=== PATIENT | female | born 1985 | race Caucasian/White ===

== ENCOUNTER → 2017-08-26 | Outpatient (CLI) | payer BC ==
[2017-08-26 10:25] LABS: CALCIUM 9.3 mg/dL (8.4-10.2); CREATININE, serum 0.54 mg/dL (0.52-1.25); POTASSIUM 4.2 mmol/L (3.4-5.0)
[2017-08-26 10:57] LABS: THYROID STIMULATING HORMONE 3.45 uIU/mL (0.465-4.680)
== END ==
LOC: COL.LAB 09:45
PROVIDERS: Physician Assistant
DX: R60.9 Edema, unspecified (principal); I10 Essential (primary) hypertension

== ENCOUNTER → 2017-09-01 | Outpatient (CLI) | payer BC | LOC: COL.CARD 09:41 | DX: I49.3 Ventricular premature depolarization (principal) ==

== ENCOUNTER 2018-10-14 05:33 | Day surgery (SDC) | payer OTHER ==
[~2018-10-14] VITALS: Ht 170.2 cm; Wt 183.7 kg
[2018-10-14] MEDS ORDERED: SYEDA 3 MG-0.031 TAB PO (06:07)
[2018-10-14] MEDS ORDERED: TENORMIN 5050 MG/TAB PO (06:09)
[2018-10-14] MEDS ORDERED: PRINIVIL10 MG PO (06:09)
[2018-10-14] MEDS ORDERED: GLUCOPHAGE1000 MG PO (06:10)
[2018-10-14] MEDS ORDERED: LEXAPRO 10MG10 MG PO (06:11)
[2018-10-14] MEDS ORDERED: ORIGANUM OIL 1 M1 ML (06:14)
[2018-10-14] MEDS ORDERED: ACIDOPHILIS PO (06:14)
[2018-10-14] MEDS ORDERED: NATURE'S BLEND600 M2 (06:15)
[2018-10-14 06:52] VITALS: BP 140/72; PULSE 88; TEMP 98.4
[2018-10-14] MEDS ORDERED: IBU800 M1 PO (08:52)
[2018-10-14] MEDS ORDERED: PERCOCET 325 MG1 TA2 PO (08:53)
[2018-10-14 10:00] VITALS: BP 111/37; PULSE 56; TEMP 97.6
[2018-10-14 10:30] VITALS: BP 118/60; PULSE 67
[2018-10-14 10:43] VITALS: BP 118/60; PULSE 67
[2018-10-14 10:45] VITALS: BP 133/57; PULSE 69
--- NOTE | 2018-10-14 13:53 | NUR ---
1015 PT SITTING UP, TALKING WITH MOTHER, DENIES PAIN, UP TO THE BATHROOM WITH MINIMAL ASSISTANCE, DENIES N/V WILL CONT TO MONITOR
--- NOTE | 2018-10-14 13:59 | NUR ---
1030 PT ALERT, DENIES PAIN, STATES SOME MENSRUAL TYPE CRAMPING, BUT TOLERABLE NOTED SCANT AMOUNT OF RED DRAINAGE IN POST-OP UNDERWEAR. DENIES N/V. WILL CONT TO MONITOR
--- NOTE | 2018-10-14 14:02 | NUR ---
1100 - PT VS WNL, O2 SATS >90% ON RA. PT STATES MINIMAL PAIN, RATES 1-2 ON 0-10 SCALE. IV DC'D TO RIGHT WRIST. NO REDNESS, SWELLING OR DRAINAGE NOTED TO IV SITE. PT DRESSED INDEPENDENTLY, WALKED TO AND FROM BATHROOM W/O DIFFICULTY. VOIDED WITHOUT DIFFICULTY. TOLERATED WATER AND SALTINE CRACKERS WITHOUT N/V. POST-OP DISCHARGE SHEET WAS SIGNED BY THE PT. POST-OP INSTRUCTIONS INCLUDED PAIN MED, PERCOCET AND SCRIPT GIVEN TO PT. ACTIVITY INSTRUCTIONS/ DIET INFO GIVEN TO PT. IF BLEEDING INCREASED OR DISCHARGE NOTED TO CALL DR WITH CONCERNS. INFO R/T ANESTHESIA GIVEN TO PT, PT VOICED UNDERSTANDING OF ALL INSTRUCTIONS. PT DC'D PER W/C WITH MOM BY HER SIDE, INTO FAMILY CAR.
== END 2018-10-14 11:27 | disposition home or self-care (01) ==
LOC: SDCO 05:33
DX: N93.8 Other specified abnormal uterine and vaginal bleeding (principal); N84.0 Polyp of corpus uteri; E28.2 Polycystic ovarian syndrome; I10 Essential (primary) hypertension; E66.01 Morbid (severe) obesity due to excess calories; K58.9 Irritable bowel syndrome, unspecified; Z79.84 Long term (current) use of oral hypoglycemic drugs
CPT/HCPCS: J1170; J1885; J2405; J2704; J3010; J7030

== ENCOUNTER → 2020-04-11 | Outpatient (CLI) | payer OTHER ==
[~2020-04-11] MED LIST: ACIDOPHILIS PO; GLUCOPHAGE1000 MG PO; IBU800 M1 PO; LEXAPRO 10MG10 MG PO; NATURE'S BLEND600 M2; ORIGANUM OIL 1 M1 ML; PERCOCET 325 MG1 TA2 PO; PRINIVIL10 MG PO; SYEDA 3 MG-0.031 TAB PO; TENORMIN 5050 MG/TAB PO
== END ==
LOC: COL.LAB
DX: R06.02 Shortness of breath (principal)

== ENCOUNTER 2020-09-17 11:32 | Emergency (ER) | payer OTHER ==
[~2020-09-17] VITALS: Ht 170.2 cm; Wt 209.5 kg
[2020-09-17 12:41] LABS: HEMATOCRIT 42.9 % (37.0-47.0); HEMOGLOBIN 13.5 g/dl (12.5-16.0); MEAN CELL VOLUME 89 fl (80.0-100.0); MEAN CORPUSCULAR HEMOGLOBIN 28 pg (27.0-31.0); MEAN CORPUSCULAR HGB CONC 32 g/dl (33.0-37.0); MEAN PLATELET VOLUME 10.3 fl (7.4-10.4); PLATELET COUNT 320 K/mm3 (130-400); RED BLOOD COUNT 4.81 M/mm3 (4.10-5.30); REDCELL DISTRIBUTION WIDTH-CV 13.6 % (11.5-14.5)
[2020-09-17 12:46] LABS: ALBUMIN 4.2 gm/dL (3.5-5.0); BILIRUBIN,TOTAL 0.4 mg/dL (0.0-1.0); CALCIUM 9.5 mg/dL (8.4-10.2); CREATININE, serum 0.46 (0.52-1.25); POTASSIUM 4.2 mmol/L (3.4-5.0); TOTAL PROTEIN 8.2 gm/dL (6.4-8.2)
[2020-09-17 13:09] LABS: BAND 7 % (0-10); LYMPHOCYTE 14 % (20.0-51.0); METAMYELOCYTE 1 % (0-0); MYELOCYTE 1 % (0-0); NEUTROPHILS 70 % (42.0-75.2)
[2020-09-17 13:10] LABS: HYPOCHROMIA 2+; PLATELET ESTIMATE NORMAL (NORMAL); STOMATOCYTE 1+
[2020-09-17] MEDS ORDERED: TESSALON P100 MG/CAP PO (14:51)
[2020-09-17 15:14] VITALS: BP 141/85; PULSE 100; TEMP 98
[2020-09-18 08:17] LABS: PATHOLOGY DIFF REVIEW OK
== END 2020-09-17 15:17 | disposition home or self-care (01) ==
LOC: COL.ER 11:32
PROVIDERS: Nurse Practitioner
DX: B34.8 Other viral infections of unspecified site (principal)
CPT/HCPCS: J7030

== ENCOUNTER → 2021-01-03 | Outpatient (CLI) | payer OTHER ==
[~2021-01-03] MED LIST changes: +TESSALON P100 MG/CAP PO
== END ==
LOC: COL.RAD 09:20
DX: R10.13 Epigastric pain (principal)

== ENCOUNTER → 2021-02-28 | Outpatient (CLI) | payer OTHER | LOC: COL.RAD 09:49 | DX: R10.13 Epigastric pain (principal) | CPT/HCPCS: A9537; J2805 ==

== ENCOUNTER 2021-04-18 09:45 | Outpatient (CLI) | payer OTHER ==
[~2021-04-18] VITALS: Ht 170.2 cm; Wt 204.0 kg
[2021-04-18] VITALS (8 sets, daily range): BP systolic 122–142; BP diastolic 61–71; PULSE 81–92; TEMP 100.2
[~2021-04-18 09:45] MED LIST changes: +GLUCOPHAGE XR500 M1 PO; -GLUCOPHAGE1000 MG PO; -NATURE'S BLEND600 M2; +NATURE'S BLEND600 M2 PO; -ORIGANUM OIL 1 M1 ML; +ORIGANUM OIL 1 M1 ML PO
[2021-04-18] MEDS ORDERED: PROBIOTIC BLEN1 EACH PO (09:58)
[2021-04-18] MEDS ORDERED: NIKKI1 TAB PO (09:59)
[2021-04-18] MEDS ORDERED: LASIX 20MG TABL20 MG PO (09:59)
[2021-04-18] MEDS ORDERED: SYNTHROID0.05 MG/TA PO (10:01)
[2021-04-18] MEDS ORDERED: PROTONIX20 MG PO (10:18)
[2021-04-18] MEDS ORDERED: ZYRTEC 10MG10 MG PO (10:19)
[2021-04-18] MEDS ORDERED: FLONASEALLERGY NS (10:19)
[2021-04-18] MEDS ORDERED: TENORMIN 5050 MG/TAB PO (10:19)
[2021-04-18] MEDS ORDERED: NAPROSYN500 MG PO (10:20)
[2021-04-18] MEDS ORDERED: MUCINEX1200 MG PO (10:20)
--- NOTE | 2021-04-18 11:45 | NUR ---
Pt tolerated infusion and 1 hr obs period without issue. Respirations have been even and unlabored after pt was able to sit and rest in recliner. Sats occasionally dropped to 88% while pt was sleeping in reclined position during observation period. INT DC'd with catheter intact. She is escorted out to ED entrance with steady gait.
== END 2021-04-18 11:45 | disposition home or self-care (01) ==
LOC: EUO 09:45
DX: U07.1 COVID-19 (principal)
CPT/HCPCS: M0245

== ENCOUNTER → 2021-04-30 | Outpatient (CLI) | payer OTHER ==
[~2021-04-30] MED LIST changes: +FLONASEALLERGY NS; +LASIX 20MG TABL20 MG PO; +MUCINEX1200 MG PO; +NAPROSYN500 MG PO; +NIKKI1 TAB PO; +PROBIOTIC BLEN1 EACH PO; +PROTONIX20 MG PO; +SYNTHROID0.05 MG/TA PO; +ZYRTEC 10MG10 MG PO
[2021-04-30 11:02] LABS: CREATININE, serum 0.64 mg/dL (0.57-1.11); POTASSIUM 4.2 mmol/L (3.5-4.5)
== END ==
LOC: COL.LAB 10:25
PROVIDERS: Family Medicine
DX: R06.00 Dyspnea, unspecified (principal)

== ENCOUNTER → 2021-06-20 | Outpatient (CLI) | payer OTHER | LOC: DIA.EDTELE 08:46 | DX: E11.65 Type 2 diabetes mellitus with hyperglycemia (principal); Z79.84 Long term (current) use of oral hypoglycemic drugs; I10 Essential (primary) hypertension | CPT/HCPCS: G0108 ==

== ENCOUNTER 2021-11-23 09:25 | Day surgery (SDC) | payer OTHER ==
[~2021-11-23] VITALS: Ht 170.2 cm; Wt 224.5 kg
[2021-11-23] MEDS ORDERED: JANUVIA 100MG100 MG PO (11:46)
[2021-11-23] MEDS ORDERED: ZOLOFT 50MG50 MG PO (11:50)
[2021-11-23] MEDS ORDERED: ZOFRAN 4MG T4 MG/TAB PO (11:57)
[2021-11-23 13:20] VITALS: BP 101/79; PULSE 96; TEMP 97.1
[2021-11-23 13:35] VITALS: BP 118/74; PULSE 93
[2021-11-23 13:50] VITALS: BP 131/77; PULSE 99
== END 2021-11-23 14:10 | disposition home or self-care (01) ==
LOC: SDCO 09:25
DX: R19.4 Change in bowel habit (principal); K30 Functional dyspepsia; K29.50 Unspecified chronic gastritis without bleeding; K58.0 Irritable bowel syndrome with diarrhea; Z79.899 Other long term (current) drug therapy
CPT/HCPCS: J2704; J7030

== ENCOUNTER 2021-12-11 11:00 | Outpatient (RCR) | payer OTHER ==
[~2021-12-11 11:00] MED LIST changes: +JANUVIA 100MG100 MG PO; +ZOFRAN 4MG T4 MG/TAB PO; +ZOLOFT 50MG50 MG PO
== END 2021-12-12 | disposition home or self-care (01) ==
LOC: MKS.ESL.PT
DX: M54.50 Low back pain, unspecified (principal)

== ENCOUNTER 2022-06-15 13:14 | Emergency (ER) | payer OTHER ==
[~2022-06-15] VITALS: Ht 170.2 cm; Wt 221.4 kg
[~2022-06-15 13:14] MED LIST changes: +LEVAQUIN 5500 MG/TA1 PO
[2022-06-15] MEDS ORDERED: MOUNJARO7.5 MG/0.5 (14:46)
[2022-06-15 14:47] LABS: HEMATOCRIT 40.3 % (37.0-47.0); HEMOGLOBIN 12.3 g/dl (12.5-16.0); MEAN CELL VOLUME 83 fl (80.0-100.0); MEAN CORPUSCULAR HEMOGLOBIN 25 pg (27-31); MEAN CORPUSCULAR HGB CONC 31 g/dl (33.0-37.0); MEAN PLATELET VOLUME 10.3 fl (7.4-10.4); PLATELET COUNT 280 K/mm3 (130-400); RED BLOOD COUNT 4.85 M/mm3 (4.10-5.30); REDCELL DISTRIBUTION WIDTH-CV 15.3 % (11.5-14.5)
[2022-06-15 15:06] LABS: ALANINE AMINOTRANSFERASE 25 U/L (0-55); ALBUMIN 3.5 gm/dL (3.5-5.0); ALKALINE PHOSPHATASE 62 U/L (40-150); ANION GAP 14 mmol/L (7-16); AST,SGOT 29 U/L (5-34); BILIRUBIN,TOTAL 0.3 mg/dL (0.2-1.2); BLOOD UREA NITROGEN 13 mg/dL (7-19); CALCIUM 9.9 mg/dL (8.4-10.2); CARBON DIOXIDE 24 mmol/L (22-29); CHLORIDE 104 mmol/L (98-107); CREATININE, serum 0.64 mg/dL (0.57-1.11); GLUCOSE 91 mg/dL (70-99); POTASSIUM 4.3 mmol/L (3.5-4.5); SODIUM 142 mmol/L (136-145); TOTAL PROTEIN 8.1 gm/dL (6.2-8.1)
[2022-06-15 15:21] LABS: TROPONIN-I < 0.010 ng/mL (0.00-0.033)
[2022-06-15 16:44] LABS: ANISOCYTOSIS 1+; BAND 10 % (0-10); EOSINOPHIL 1 % (0-4); LYMPHOCYTE 17 % (20.0-51.0); METAMYELOCYTE 1 % (0-0); NEUTROPHILS 65 % (42.0-75.2); PLATELET ESTIMATE NORMAL (NORMAL)
[2022-06-15 17:20] VITALS: BP 138/76; PULSE 76; TEMP 98.6
== END 2022-06-15 17:23 | disposition home or self-care (01) ==
LOC: COL.ER 13:14
PROVIDERS: Nurse Practitioner
DX: R06.00 Dyspnea, unspecified (principal); E66.9 Obesity, unspecified; Z68.45 Body mass index [BMI] 70 or greater, adult
CPT/HCPCS: Q9967

== ENCOUNTER 2022-08-06 16:38 | Observation (INO) | payer OTHER ==
[~2022-08-06] VITALS: Ht 170.2 cm; Wt 214.0 kg
[~2022-08-06 16:38] MED LIST changes: +MOUNJARO7.5 MG/0.5 SQ; +NAPROSYN 2250 MG/TAB PO; -NAPROSYN500 MG PO; -SYNTHROID0.05 MG/TA PO; +SYNTHROID0.075 MG/T PO
[2022-08-06 17:45] LABS: COLLECTION METHOD CATHETER
[2022-08-06 17:59] LABS: MUCOUS Present (NOT PRESENT); URINE BACTERIA None Seen /hpf (NONE SEEN); URINE RBC 0-2 /hpf (0-2)
[2022-08-06 18:00] LABS: PH 5.5 (5-8); URINE APPEARANCE Hazy (CLEAR/HAZY); URINE BLOOD Negative (NEGATIVE); URINE COLOR Yellow (YELLOW); URINE GLUCOSE Negative (NEGATIVE); URINE KETONE Negative (NEGATIVE); URINE NITRATE Negative (NEGATIVE); URINE PROTEIN(semi-quant) Negative (NEGATIVE); URINE UROBILINOGEN 0.2 (NEGATIVE)
[2022-08-06 21:23] VITALS: BP 169/87; PULSE 132; TEMP 99.3
[2022-08-06 22:00] VITALS: BP_SYST 169
[2022-08-06] MEDS ORDERED: SINGULAIR 110 MG/TAB PO (22:21)
[2022-08-06] MEDS ORDERED: COLESTID 1GM1 G PO (22:21)
[2022-08-06 23:37] VITALS: BP 121/54; PULSE 100; TEMP 98.5
[2022-08-06 23:53] VITALS: BP_SYST 121
[2022-08-07] VITALS (11 sets, daily range): BP systolic 101–145; BP diastolic 49–89; PULSE 61–87; TEMP 97.7–98.4
[2022-08-07 07:39] LABS: MEAN CELL VOLUME 84 fl (80.0-100.0); MEAN CORPUSCULAR HGB CONC 31 g/dl (33.0-37.0); MEAN PLATELET VOLUME 9.8 fl (7.4-10.4); PLATELET COUNT 272 K/mm3 (130-400); RED BLOOD COUNT 4.34 M/mm3 (4.10-5.30); REDCELL DISTRIBUTION WIDTH-CV 15.7 % (11.5-14.5)
[2022-08-07 07:55] LABS: CALCIUM 8.7 mg/dL (8.4-10.2); CREATININE, serum 0.59 mg/dL (0.57-1.11); MAGNESIUM 1.6 mg/dL (1.6-2.6); POTASSIUM 3.6 mmol/L (3.5-4.5)
[2022-08-07 08:03] LABS: HEMATOCRIT 36.4 % (37.0-47.0); HEMOGLOBIN 11.2 g/dl (12.5-16.0); MEAN CORPUSCULAR HEMOGLOBIN 26 pg (27-31)
[2022-08-07 08:17] LABS: BAND 2 % (0-10); EOSINOPHIL 1 % (0-4); LYMPHOCYTE 26 % (20.0-51.0); NEUTROPHILS 65 % (42.0-75.2); PLATELET ESTIMATE NORMAL (NORMAL)
--- NOTE | 2022-08-07 09:12 | NUR ---
SW met with the patient to discuss discharge plan. The patient lives in [place] with her , Gomez (ph#[phone]), and their son. She reports independence with ADLs and does not have any assistive devices. She has a CPAP. The patient's PCP is Dr. Rivera Maloney and she obtains her medications from [facility]. The patient does not have a DPOA-HC and she was not interested in completing one at this time. The patient plans to return home with her family upon discharge. No additional needs at this time. *Discharge plan: home with family*
--- NOTE | 2022-08-07 09:49 | NUR ---
Initial visit; Patient thanked [employer] Factor for looking in on her though declined spiritual care at this time.
--- NOTE | 2022-08-07 10:26 | NUR ---
PATIENT ALERT AND ORIENTED X3. INDEPENDENT IN ROOM. IV FLUIDS DISCONTINUED. STARTED ON CARAFATE. PRN MAALOX GIVEN FOR ACID REFLUX. PRN TYLENOL GIVEN. IV TO RIGHT AC. NO NEW CONCERNS.
[2022-08-07] MEDS ORDERED: ALLEGRA 180MG180 MG PO (10:57)
[2022-08-07] MEDS ORDERED: TYLENOL 500MG500 MG PO (11:02)
[2022-08-07] MEDS ORDERED: IMODIUM 2MG CAPS2 MG PO (11:06)
[2022-08-08 04:20] VITALS: BP 111/48; PULSE 59; TEMP 97.7
[2022-08-08 05:06] VITALS: BP_SYST 111
--- NOTE | 2022-08-08 05:06 | NUR ---
PT ASSESSED AT 1953, VSS OVERNIGHT WITH NO COMPAINTS OF PAIN OR ACID REFLUX REQUIRING MEDICATION.
[2022-08-08 07:11] LABS: HEMATOCRIT 37.4 % (37.0-47.0); HEMOGLOBIN 11.4 g/dl (12.5-16.0); MEAN CELL VOLUME 84 fl (80.0-100.0); MEAN CORPUSCULAR HEMOGLOBIN 26 pg (27-31); MEAN CORPUSCULAR HGB CONC 31 g/dl (33.0-37.0); MEAN PLATELET VOLUME 10.4 fl (7.4-10.4); PLATELET COUNT 273 K/mm3 (130-400); RED BLOOD COUNT 4.45 M/mm3 (4.10-5.30); REDCELL DISTRIBUTION WIDTH-CV 15.9 % (11.5-14.5)
[2022-08-08 07:22] VITALS: BP 144/87; PULSE 80; TEMP 97.7
[2022-08-08 07:22] LABS: CREATININE, serum 0.62 mg/dL (0.57-1.11); MAGNESIUM 1.9 mg/dL (1.6-2.6); PHOSPHOROUS 4.7 mg/dL (2.3-4.7); POTASSIUM 3.9 mmol/L (3.5-4.5)
--- NOTE | 2022-08-08 08:00 | NUR ---
Patient is on the side of the bed, alert and oriented x 4, VSS. Denies any pain or discomfort at this time. Water and a clean gown provided. Assessment completed, no further needs at this time. Call light within reach.
[2022-08-08 08:04] LABS: BAND 8 % (0-10); BASOPHIL 2 % (0-2); EOSINOPHIL 2 % (0-4); LYMPHOCYTE 32 % (20.0-51.0); METAMYELOCYTE 1 % (0-0); NEUTROPHILS 49 % (42.0-75.2); NUCLEATED RED BLOOD CELL 1 (0-6); PLATELET ESTIMATE NORMAL (NORMAL)
[2022-08-08] MEDS ORDERED: OMNICEF 300MG300 MG PO (09:28)
[2022-08-08] MEDS ORDERED: CARAFATE 1GM1 G PO (09:29)
[2022-08-08] MEDS ORDERED: PROTONIX 40MG T40 MG PO (09:29)
[2022-08-08 09:42] VITALS: BP_SYST 144
[2022-08-08 11:36] VITALS: BP 147/72; PULSE 82; TEMP 97.9
--- NOTE | 2022-08-08 12:19 | NUR ---
Patient was provided with discharge information, all questions answered. IV access and telemetry were discontinued. Pt taken by wheelchair to the entrance of the hospital by SHWETA Lentz, accompanied by .
== END 2022-08-08 12:25 | disposition home or self-care (01) ==
LOC: COL.ER 16:38 → MEDICAL 20:43
PROVIDERS: Personal Emergency Response Attendant; Student in an Organized Health Care Education/Training Program; ADMIT Internal Medicine
DX: R65.10 Systemic inflammatory response syndrome (SIRS) of non-infectious origin without acute organ dysfunction (principal); R05.9 Cough, unspecified; R09.81 Nasal congestion; R10.9 Unspecified abdominal pain; D72.829 Elevated white blood cell count, unspecified; N28.89 Other specified disorders of kidney and ureter; E66.01 Morbid (severe) obesity due to excess calories; F41.9 Anxiety disorder, unspecified; F32.A Depression, unspecified; E11.9 Type 2 diabetes mellitus without complications; I10 Essential (primary) hypertension; K21.9 Gastro-esophageal reflux disease without esophagitis; E03.9 Hypothyroidism, unspecified; Z79.84 Long term (current) use of oral hypoglycemic drugs; Z20.822 Contact with and (suspected) exposure to COVID-19; Z79.899 Other long term (current) drug therapy; Z79.890 Hormone replacement therapy
CPT/HCPCS: G0378; J0696; J1644; J2270; J2405; J3475; J7030; Q9967

== ENCOUNTER → 2022-08-23 | Outpatient (CLI) | payer OTHER ==
[~2022-08-23] MED LIST changes: +ALLEGRA 180MG180 MG PO; +CARAFATE 1GM1 G PO; +COLESTID 1GM1 G PO; +IMODIUM 2MG CAPS2 MG PO; +OMNICEF 300MG300 MG PO; +PROTONIX 40MG T40 MG PO; +SINGULAIR 110 MG/TAB PO; +TYLENOL 500MG500 MG PO
== END ==
LOC: COL.RAD 11:00
DX: N28.89 Other specified disorders of kidney and ureter (principal)
CPT/HCPCS: Q9967

== ENCOUNTER 2023-08-20 03:50 | Emergency (ER) | payer OTHER ==
[~2023-08-20] VITALS: Ht 170.2 cm; Wt 205.5 kg
[2023-08-20 04:36] LABS: URINE APPEARANCE TURBID (CLEAR/HAZY); URINE BLOOD 3+ (NEGATIVE); URINE COLOR RED (YELLOW); URINE GLUCOSE NEGATIVE (NEGATIVE); URINE KETONE NEGATIVE (NEGATIVE); URINE NITRATE NEGATIVE (NEGATIVE); URINE PROTEIN(semi-quant) 2+ (NEGATIVE); URINE UROBILINOGEN 0.2 E.U/dL (0.2-1.0)
[2023-08-20] MEDS ORDERED: CEPHALEXIN500 M1 PO (05:11)
[2023-08-20] MEDS ORDERED: Cephalexin 500 MG CAP PO ONE (05:15)
[2023-08-20 05:24] VITALS: BP 143/91; PULSE 86; TEMP 98.1
[2023-08-21 13:52] LABS: COLLECTION METHOD CLEAN CATCH
== END 2023-08-20 05:24 | disposition home or self-care (01) ==
LOC: COL.ER 03:50
PROVIDERS: Emergency Medicine
DX: N39.0 Urinary tract infection, site not specified (principal)